=== PATIENT | male | born 1975 | race Caucasian/White ===

== ENCOUNTER 2020-01-22 14:09 | Emergency (ER) | payer SELFPAY ==
[2020-01-22] VITALS (9 sets, daily range): BP systolic 125–147; BP diastolic 78–86; PULSE 86; RESP 23; TEMP 36.8; O2SAT 94–98
--- NOTE | ~2020-01-22 | XR_ITS ---
EXAMINATION: XR chest 1V portable EXAM DATE: 01/22/2020 14:35 INDICATION: Cough. TECHNIQUE: Portable AP frontal chest x-ray was obtained. There is no prior study for comparison. FINDINGS: The lungs are clear. There are no pleural effusions. Cardiac silhouette is prominent but magnified on this AP technique. There is no pneumothorax suspected. 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 IMPRESSION: No acute cardiopulmonary findings. Reviewed, dictated and finalized at location G.
--- NOTE | 2020-01-22 14:55 | ED.SOB ---
HPI - SOB/Dyspnea General Chief Complaint: Shortness of Breath/Dyspnea Stated Complaint: SOB AND FEVER Time Seen by Provider: 01/22/20 14:43 Source: patient and RN notes reviewed Mode of arrival: ambulatory Limitations: no limitations History of Present Illness HPI Narrative: Pt is a 44 y/o male with a Hx of asthma, who presents to the ED with c/o SOB starting several days ago. He notes that he recently travelled to [place] for work. Pt states that he has been using his Albuterol inhaler and his CPAP during the day for the past several days due to his increased trouble breathing. He also reports a fever, cough, wheezing, and rhinorrhea. MD elicited complaint: shortness of breath Pertinent past history: asthma Onset (ago): day(s) (several) Context: recent travel (to [place]) Known history of: asthma Associated symptoms: fever, cough, wheezing and other (rhinorrhea) Related Data Home Medications Medication Instructions Recorded Confirmed ProAir HFA 01/22/20 fluoxetine 40 mg PO DAILY 01/22/20 01/22/20 lisinopril-hydrochlorothiazide 1 tablet PO DAILY 01/22/20 01/22/20 loratadine 10 mg PO DAILY 01/22/20 01/22/20 Allergies Allergy/AdvReac Type Severity Reaction Status Date / Time No Known Allergies Allergy Verified 01/22/20 14:22 Review of Systems Review of Systems: All systems reviewed & are unremarkable except as noted in HPI and below Constitutional: Constitutional: Reports fever(s) (subj) Eyes: Eyes: Denies change in vision ENT: Reports nasal congestion, Reports nasal discharge and Denies sore throat Respiratory: Respiratory: Reports cough, Reports dyspnea and Reports wheezing Gastrointestinal: Gastrointestinal: Denies diarrhea and Denies vomiting PMFSH Past Medical History Medical History Asthma Surgical History Surgical History Surgical history unknown Social History Social History Smoking status: Unknown if ever smoked Gender identity (if verbalized by the patient): Male Exam Const: General: healthy appearing and no acute distress Nutritional Appearance: well nourished HENMT: Head: normocephalic and atraumatic Resp: Effort & Inspection: normal respiratory effort Auscultation: clear to auscultation bilaterally and no wheezes Cardio: Rate: regular rate Rhythm: regular rhythm Heart sounds: no murmurs Back/Spine/Pelvis: Back: other (Full ROM) Skin: General skin exam: normal color and other (warm; dry) Neuro: General: patient oriented x3 (alert) Speech: normal speech Motor exam (neuro): Other motor observations present (motor intact) Extrem: General: full ROM Psych: Mental Status: mental status grossly normal Affect: normal affect Course Course Emergency Course: cxr, cbc/diff, sats all ok Vital Signs Vital signs: Vital Signs Temperature 36.8 C 01/22/20 14:18 Pulse Rate 86 01/22/20 14:18 Respiratory Rate 23 H 01/22/20 14:18 Blood Pressure 147/81 H 01/22/20 14:18 Pulse Oximetry 98 01/22/20 14:18 Temperature 36.8 C 01/22/20 14:18 Pulse Rate 86 01/22/20 14:18 Respiratory Rate 23 H 01/22/20 14:18 Blood Pressure 147/81 H 01/22/20 14:18 Pulse Oximetry 98 01/22/20 14:18 MDM - SOB/Dyspnea Lab Data Result diagrams: 01/22/20 16:01 Labs: Lab Results 01/22/20 Range/Units 16:01 WBC 9.0 (4.5-10.0) K/mm3 RBC 5.45 (4.6-6.20) M/mm3 Hgb 15.6 (14.0-18.0) g/dL Hct 45.7 (42.0-52.0) % MCV 83.9 (80-100) fl MCH 28.6 (26-34) pg MCHC 34.1 (32-36) g/dl RDW 13.1 (11.5-14.5) % Plt Count 219 (150-375) k/mm3 MPV 10.8 H (7.4-10.4) fl Immature Gran % (Auto) 1.0 H (0-0.5) % Neut % (Auto) 65.7 (45.5-73.1) % Lymph % (Auto) 20.9 (18.3-44.2) % [place] % (Auto) 7.5 (2.6-8.5) % Eos % (Auto) 4.5 H (0-4.4) % Baso % (Auto) 0.4 (0.2-1.2) % Lymph # (Auto) 1.88
--- NOTE | 2020-01-22 15:05 | PC.NURSE ---
Pt moved from Rm 20 into 19 to monitor continuous pulse oximetry.
[2020-01-22 16:07] LABS: Basophils Percent Auto 0.4 % (0.2-1.2); Eosinophils Absolute Auto 0.4 K/mm3 (0-0.3); Eosinophils Percent Auto 4.5 % (0-4.4); Hematocrit 45.7 % (42.0-52.0); Hemoglobin 15.6 g/dL (14.0-18.0); Immature Granulocyte Absolute 0.09 K/mm3 (0.00-0.031); Lymphocytes Absolute Auto 1.88 K/mm3 (0.9-3.2); Lymphocytes Percent Auto 20.9 % (18.3-44.2); Mean Corpuscular HGB Conc 34.1 g/dl (32-36); Mean Corpuscular Hemoglobin 28.6 pg (26-34); Mean Corpuscular Volume 83.9 fl (80-100); Mean Platelet Volume 10.8 fl (7.4-10.4); Monocytes Absolute Auto 0.7 K/mm3 (0.1-0.6); Monocytes Percent Auto 7.5 % (2.6-8.5); Neutrophils Absolute Auto 5.9 K/mm3 (1.3-6.7); Neutrophils Percent Auto 65.7 % (45.5-73.1); Platelet Count Result 219 k/mm3 (150-375); Red Blood Count 5.45 M/mm3 (4.6-6.20); Red Cell Distribution Width 13.1 % (11.5-14.5)
--- NOTE | 2020-01-22 16:38 | PC.NURSE ---
Preparing to discharge. Pt states feels much better at present and is breathing easier.
== END 2020-01-22 16:41 | disposition home or self-care (01) ==
PROVIDERS: Emergency Provider Emergency Medicine
DX: J45.901 Unspecified asthma with (acute) exacerbation (principal)
CPT/HCPCS: 36415; 71045; 85025; 96372; 99283; J1100